=== PATIENT | female | born 1995 | race African-American/Black ===

== ENCOUNTER 2018-02-22 17:40 | Emergency (ER) | payer MEDICAID, OTHER ==
[~2018-02-22] VITALS: Ht 162.6 cm; Wt 68.0 kg
[~2018-02-22 17:40] MED LIST: FERR-43 PO
[2018-02-22 23:58] LABS: CLARITY URINE CLEAR (CLEAR); COLOR URINE YELLOW (YELLOW); KETONES URINE TRACE (NEGATIVE); LEUKOCYTE ESTERASE URINE NEGATIVE (NEGATIVE); NITRITE URINE NEGATIVE (NEGATIVE); OCCULT BLOOD URINE NEGATIVE (NEGATIVE); PH URINE 5.5 (4.5-8.0); PROTEIN URINE NEGATIVE (NEGATIVE); SPECIFIC GRAVITY URINE 1.029 (1.005-1.030)
[2018-02-23] MEDS ORDERED: KETOROLAC 60MG/2ML VIAL IM ONE
[2018-02-23 00:48] VITALS: BP 117/75
== END 2018-02-23 00:50 | disposition home or self-care (01) ==
LOC: ER 17:40
DX: M54.5 Low back pain (principal); F17.200 Nicotine dependence, unspecified, uncomplicated
CPT/HCPCS: 81003; 81025; 96372; 99283; J1885

== ENCOUNTER 2018-04-09 21:09 | Emergency (ER) | payer OTHER ==
[~2018-04-09] VITALS: Ht 162.6 cm; Wt 63.0 kg
[2018-04-09 23:12] LABS: CLARITY URINE CLEAR (CLEAR); COLOR URINE YELLOW (YELLOW); KETONES URINE NEGATIVE (NEGATIVE); LEUKOCYTE ESTERASE URINE 1+ (NEGATIVE); NITRITE URINE NEGATIVE (NEGATIVE); OCCULT BLOOD URINE 2+ (NEGATIVE); PROTEIN URINE TRACE (NEGATIVE); SPECIFIC GRAVITY URINE 1.017 (1.005-1.030); UROBILINOGEN URINE 0.2 E.U./dL (0.2-1.0)
[2018-04-09] MEDS ORDERED: METRONIDAZOLE 50MG/ML 1ML ORAL SYR(NEO) PO ONE (23:30)
[2018-04-10] MEDS ORDERED: METRONIDAZOLE 500MG TABLET PO NR (00:15)
[2018-04-10 00:17] VITALS: BP 114/74
== END 2018-04-10 00:34 | disposition home or self-care (01) ==
LOC: ER 21:09
DX: M54.5 Low back pain (principal)
CPT/HCPCS: 76830; 76856; 81025; 99284

== ENCOUNTER 2018-08-12 17:34 | Emergency (ER) | payer OTHER ==
[~2018-08-12] VITALS: Ht 162.6 cm; Wt 73.0 kg
[2018-08-12] MEDS ORDERED: DEXT 10% WATER 1,000 ML IV ONE (21:16)
[2018-08-12] MEDS ORDERED: ACETAMINOPHEN 650MG/20.3ML UDC PO ONE (21:30)
[2018-08-12] MEDS ORDERED: FUROSEMIDE 100MG/10ML VIAL IVP ONE (21:30)
[2018-08-12] MEDS ORDERED: DEXTROSE 50% WATER 50ML SYRINGE IV ONE (21:30)
[2018-08-12] MEDS ORDERED: ACETAMINOPHEN 325MG TABLET PO ONE (22:00)
[2018-08-12 22:04] LABS: BASOPHILS % 0.9 % (0.0-2.0); EOSINOPHILS % 0.2 % (0.0-5.0); HEMATOCRIT. 35.6 % (36.0-48.0); HEMOGLOBIN. 11.3 g/dL (12.0-16.0); LYMPHOCYTES % 26.5 % (20.0-50.0); MEAN CORPUSCULAR HEMOGLOBIN 24.9 pg (28.0-32.0); MEAN CORPUSCULAR VOLUME 78.2 fL (81.0-99.0); MEAN PLATELET VOLUME 7.8 fl (7.4-10.4); MONOCYTES % 6.9 % (2.0-8.0); NEUTROPHILS % 65.5 % (40.0-76.0); PLATELET 395 x1000/uL (130-400); RED BLOOD CELL COUNT 4.55 mill/uL (4.2-5.4); RED CELL DISTRIBUTION WIDTH 17.3 % (11.6-14.6)
[2018-08-12 22:05] LABS: CHLORIDE 104 mEq/L (98-107)
[2018-08-12 22:07] LABS: PROTHROMBIN TIME 10.6 sec (9.6-11.0)
[2018-08-12 22:10] LABS: PHOSPHORUS 3.9 mg/dL (2.5-4.9)
[2018-08-12 22:29] LABS: B-HCG QUANTITATIVE 11937 mIU/mL (<3)
[2018-08-12 23:50] VITALS: BP 118/70
== END 2018-08-12 23:50 | disposition home or self-care (01) ==
LOC: ER 17:34
DX: O26.891 Other specified pregnancy related conditions, first trimester (principal); R10.2 Pelvic and perineal pain; R10.9 Unspecified abdominal pain; F17.200 Nicotine dependence, unspecified, uncomplicated; Z79.899 Other long term (current) drug therapy; Z3A.01 Less than 8 weeks gestation of pregnancy
CPT/HCPCS: 36415; 76801; 76817; 80053; 83690; 83735; 83880; 84100; 84702; 85025; 85610; 86850; 86900; 86901; 99284; Z7610

== ENCOUNTER 2018-08-18 23:19 | Emergency (ER) | payer OTHER ==
[~2018-08-18] VITALS: Ht 162.6 cm; Wt 75.0 kg
[2018-08-19 02:58] LABS: CLARITY URINE CLOUDY (CLEAR); COLOR URINE YELLOW (YELLOW); KETONES URINE NEGATIVE (NEGATIVE); LEUKOCYTE ESTERASE URINE NEGATIVE (NEGATIVE); NITRITE URINE NEGATIVE (NEGATIVE); OCCULT BLOOD URINE NEGATIVE (NEGATIVE); PROTEIN URINE NEGATIVE (NEGATIVE); SPECIFIC GRAVITY URINE 1.028 (1.005-1.030); UROBILINOGEN URINE 0.2 E.U./dL (0.2-1.0)
[2018-08-19] MEDS ORDERED: SODIUM CHLORIDE 0.9% 1,000 ML IV ONE (04:20)
[2018-08-19 04:30] VITALS: BP 121/68
[2018-08-19] MEDS ORDERED: METOCLOPRAMIDE HCL 10MG/2ML VIAL IV ONE (04:30)
[2018-08-19] MEDS ORDERED: ONDANSETRON 4MG ODT PO ONE (06:30)
== END 2018-08-19 06:30 | disposition home or self-care (01) ==
LOC: ER 23:19
DX: O21.9 Vomiting of pregnancy, unspecified (principal); O26.891 Other specified pregnancy related conditions, first trimester; Z3A.01 Less than 8 weeks gestation of pregnancy; K59.00 Constipation, unspecified
CPT/HCPCS: 81003; 81025; 96361; 96374; 99283; J2765; J7030; Q0162; Z7610

== ENCOUNTER 2018-08-25 18:48 | Emergency (ER) | payer OTHER ==
[~2018-08-25] VITALS: Ht 165.1 cm; Wt 70.6 kg
[2018-08-25 21:12] LABS: BASOPHILS % 0.3 % (0.0-2.0); EOSINOPHILS % 0.3 % (0.0-5.0); HEMATOCRIT. 35.8 % (36.0-48.0); HEMOGLOBIN. 11.7 g/dL (12.0-16.0); LYMPHOCYTES % 7.7 % (20.0-50.0); MEAN CORPUSCULAR HEMOGLOBIN 25.5 pg (28.0-32.0); MEAN CORPUSCULAR VOLUME 78.3 fL (81.0-99.0); MONOCYTES % 4.6 % (2.0-8.0); NEUTROPHILS % 87.1 % (40.0-76.0); PLATELET 393 x1000/uL (130-400); RED BLOOD CELL COUNT 4.57 mill/uL (4.2-5.4); RED CELL DISTRIBUTION WIDTH 18.1 % (11.6-14.6)
[2018-08-25 21:18] LABS: CHLORIDE 105 mEq/L (98-107)
[2018-08-25 21:42] LABS: B-HCG QUANTITATIVE 129555 mIU/mL (<3)
[2018-08-25] MEDS ORDERED: SODIUM CHLORIDE 0.9% 1,000 ML IV ONE (23:15)
[2018-08-25] MEDS ORDERED: ONDANSETRON HCL 4MG/2ML INJ IV ONE (23:15)
[2018-08-26 01:08] VITALS: BP 124/61
== END 2018-08-26 01:17 | disposition home or self-care (01) ==
LOC: ER 18:48
DX: O99.011 Anemia complicating pregnancy, first trimester (principal); Z3A.01 Less than 8 weeks gestation of pregnancy; R11.2 Nausea with vomiting, unspecified; D72.829 Elevated white blood cell count, unspecified; D50.9 Iron deficiency anemia, unspecified
CPT/HCPCS: 36415; 76801; 76817; 80053; 81025; 84702; 85025; 86850; 86900; 86901; 96361; 96374; 99284; J2405; J7030; Z7610

== ENCOUNTER 2018-11-08 21:32 | Emergency (ER) | payer OTHER ==
[~2018-11-08] VITALS: Ht 162.6 cm; Wt 70.0 kg
[2018-11-08 21:55] LABS: CLARITY URINE CLEAR (CLEAR); COLOR URINE YELLOW (YELLOW); KETONES URINE TRACE (NEGATIVE); LEUKOCYTE ESTERASE URINE NEGATIVE (NEGATIVE); NITRITE URINE NEGATIVE (NEGATIVE); OCCULT BLOOD URINE NEGATIVE (NEGATIVE); PROTEIN URINE NEGATIVE (NEGATIVE); SPECIFIC GRAVITY URINE 1.029 (1.005-1.030)
[2018-11-09 00:49] VITALS: BP 113/76
== END 2018-11-09 00:50 | disposition home or self-care (01) ==
LOC: ER 21:32
DX: O26.892 Other specified pregnancy related conditions, second trimester (principal); R10.2 Pelvic and perineal pain; Z3A.18 18 weeks gestation of pregnancy
CPT/HCPCS: 76805; 81003; 81025; 87077; 99284

== ENCOUNTER 2019-01-04 18:38 | Observation (INO) | payer MEDICAID, OTHER ==
[~2019-01-04] VITALS: Ht 162.6 cm; Wt 74.4 kg
[2019-01-04] MEDS ORDERED: ACETAMINOPHEN 500MG TABLET PO NR (19:30)
== END 2019-01-04 20:18 | disposition home or self-care (01) ==
LOC: 8 EST LDRP 18:38
PROVIDERS: ADMIT Obstetrics & Gynecology; ATTEND Obstetrics & Gynecology
DX: O9A.212 Injury, poisoning and certain other consequences of external causes complicating pregnancy, second trimester (principal); S39.012A Strain of muscle, fascia and tendon of lower back, initial encounter; Z3A.27 27 weeks gestation of pregnancy; X50.0XXA Overexertion from strenuous movement or load, initial encounter; Y93.9 Activity, unspecified; Y92.009 Unspecified place in unspecified non-institutional (private) residence as the place of occurrence of the external cause
CPT/HCPCS: 99281; G0378

== ENCOUNTER 2019-03-13 19:31 | Observation (INO) | payer MEDICAID ==
[~2019-03-13] VITALS: Ht 162.6 cm; Wt 82.1 kg
== END 2019-03-13 22:10 | disposition home or self-care (01) ==
LOC: L&D 19:31 → INTOOBSV 19:31 → 8 EST LDRP 20:49
PROVIDERS: ADMIT Specialist; ATTEND Specialist
DX: O62.9 Abnormality of forces of labor, unspecified (principal); O22.43 Hemorrhoids in pregnancy, third trimester; Z3A.36 36 weeks gestation of pregnancy
CPT/HCPCS: 76815; 76818; 99281; G0378

== ENCOUNTER 2019-03-26 05:17 | Inpatient (IN) | payer MEDICAID ==
[~2019-03-26] VITALS: Ht 162.6 cm; Wt 79.4 kg
[2019-03-26 09:00] LABS: PROTHROMBIN TIME 9.9 sec (9.6-11.0)
[2019-03-26 09:01] LABS: BASOPHILS % 0.6 % (0.0-2.0); CHLORIDE 111 mEq/L (98-107); EOSINOPHILS % 0.7 % (0.0-5.0); HEMOGLOBIN. 10.2 g/dL (12.0-16.0); LYMPHOCYTES % 16.6 % (20.0-50.0); MEAN CORPUSCULAR HEMOGLOBIN 25.2 pg (28.0-32.0); MEAN CORPUSCULAR VOLUME 76.3 fL (81.0-99.0); MEAN PLATELET VOLUME 7.4 fl (7.4-10.4); MONOCYTES % 7.3 % (2.0-8.0); NEUTROPHILS % 74.8 % (40.0-76.0); PLATELET 402 x1000/uL (130-400); RED BLOOD CELL COUNT 4.06 mill/uL (4.2-5.4); RED CELL DISTRIBUTION WIDTH 19.3 % (11.6-14.6)
[2019-03-26 09:15] LABS: HCG SCREEN POSITIVE
[2019-03-26 10:23] LABS: CLARITY URINE TURBID (CLEAR); COLOR URINE RED (YELLOW); KETONES URINE NEGATIVE (NEGATIVE); LEUKOCYTE ESTERASE URINE 3+ (NEGATIVE); NITRITE URINE NEGATIVE (NEGATIVE); OCCULT BLOOD URINE 3+ (NEGATIVE); PH URINE 6.5 (4.5-8.0); PROTEIN URINE 2+ (NEGATIVE); SPECIFIC GRAVITY URINE 1.014 (1.005-1.030)
[2019-03-26] MEDS ORDERED: MAGNESIUM 4 G PREMIX 100 ML IV ONE (11:00)
[2019-03-26] MEDS ORDERED: IOHEXOL-350 100 ML BOTTLE ONE (15:15)
[2019-03-26] MEDS ORDERED: CEFTRIAXONE 1 G PREMIX 50 ML IV ONE (15:45)
[2019-03-26] MEDS ORDERED: IPRATROPIUM/ALBUTEROL 0.5-3(2.5)MG/3ML NEB HHN PRN (16:00)
[2019-03-26] MEDS ORDERED: CLONIDINE 0.1MG TABLET PO PRN (16:00)
[2019-03-26] MEDS ORDERED: ONDANSETRON HCL 4MG/2ML INJ IV PRN (16:00)
[2019-03-26] MEDS ORDERED: HYDROCODONE/ACETAMINOPHEN 5/325MG TABLET PO PRN (16:00)
[2019-03-26] MEDS ORDERED: ACETAMINOPHEN 325MG TABLET PO PRN (16:00)
[2019-03-26] MEDS ORDERED: LORAZEPAM 0.5MG TABLET PO PRN (16:00)
[2019-03-26 17:05] LABS: C REACTIVE PROTEIN CARDIAC 6.9 mg/L (0.00-3.00)
[2019-03-26 17:49] LABS: *AMPHETAMINES SCREEN URINE NEGATIVE (NEGATIVE); *BARBITURATES SCREEN URINE NEGATIVE (NEGATIVE); *BENZODIAZEPINES SCREEN URINE NEGATIVE (NEGATIVE); *COCAINE SCREEN URINE NEGATIVE (NEGATIVE); METHADONE URINE SCREEN NEGATIVE (NEGATIVE); OPIATES URINE SCREEN NEGATIVE (NEGATIVE)
[2019-03-26 17:50] LABS: CANNABINOID URINE SCREEN NEGATIVE (NEGATIVE); PHENCYCLIDINE URINE SCREEN NEGATIVE (NEGATIVE)
[2019-03-26] MEDS: LACTATED RINGERS 1,000 ML IV SCH (18:36)
[2019-03-27] VITALS: BP 143/91
[2019-03-27 00:32] VITALS: BP 132/89
[2019-03-27] MEDS: LACTATED RINGERS 1,000 ML IV SCH (03:46)
[2019-03-27 04:00] VITALS: BP 145/73
[2019-03-27 12:00] VITALS: BP 130/78
[2019-03-27 12:02] LABS: CREATINE KINASE 86 IU/L (26-192)
[2019-03-27 13:23] VITALS: BP 130/78
[2019-03-28 09:10] LABS: COMPLEMENT C3 146 mg/dL (82-167)
[2019-03-28 14:08] LABS: ANTI-NUCLEAR ANTIBODIES DIRECT Positive (Negative)
== END 2019-03-27 15:30 | disposition home or self-care (01) | DRG 561 ==
LOC: ER 05:17 → 5WST 11:49 → ENRESERV 16:20 → CANRESERV 16:20 → ENRESERV 19:56
PROVIDERS: ADMIT Internal Medicine; ATTEND Internal Medicine
DX: O16.5 Unspecified maternal hypertension, complicating the puerperium (principal); O86.20 Urinary tract infection following delivery, unspecified; T80.92XA Unspecified transfusion reaction, initial encounter; R79.89 Other specified abnormal findings of blood chemistry; O90.81 Anemia of the puerperium; O99.89 Other specified diseases and conditions complicating pregnancy, childbirth and the puerperium; Y83.8 Other surgical procedures as the cause of abnormal reaction of the patient, or of later complication, without mention of misadventure at the time of the procedure; N05.9 Unspecified nephritic syndrome with unspecified morphologic changes; O12.15 Gestational proteinuria, complicating the puerperium; D50.9 Iron deficiency anemia, unspecified; Z79.899 Other long term (current) drug therapy; Y92.89 Other specified places as the place of occurrence of the external cause
CPT/HCPCS: 36415; 71045; 71275; 76770; 80053; 80305; 81003; 82550; 82570; 82728; 83010; 83540; 83550; 83615; 83880; 84156; 84484; 84550; 84703; 85025; 85651; 86038; 86141; 86160; 93005; 93971; 99285; J0696; J3475; Q9967

== ENCOUNTER 2019-06-19 06:09 | Emergency (ER) | payer OTHER ==
[~2019-06-19] VITALS: Ht 162.6 cm; Wt 77.1 kg
[2019-06-19 08:20] VITALS: BP 118/85
== END 2019-06-19 08:23 | disposition home or self-care (01) ==
LOC: ER 06:18
DX: J20.9 Acute bronchitis, unspecified (principal); J06.9 Acute upper respiratory infection, unspecified; Z86.11 Personal history of tuberculosis; Z87.891 Personal history of nicotine dependence
CPT/HCPCS: 99283